=== PATIENT | female | born 1985 | race Caucasian/White ===

== ENCOUNTER 2019-08-11 13:24 | Emergency (ER) | payer MEDICAID ==
[~2019-08-11] VITALS: Ht 157.5 cm; Wt 68.0 kg
[2019-08-11 13:28] VITALS: BP 109/79
--- NOTE | 2019-08-11 13:33 | NUR ---
urine cup handed to pt for sample
--- NOTE | 2019-08-11 13:57 | NUR ---
strep and influenza swabs collected ---
--- NOTE | 2019-08-11 14:44 | NUR ---
33 Y/O C/C SORE THROAT X1 DAY. PT HAS NOT TAKEN MEDICATION FOR SORE THROAT. PT NOT TAKEN FLU SHOT/NO ONE SICK AT HOME. PT NKA. HX BIPOLAR. RX PT DOES NOT REMEMBER. NO N/V/D. PT SITTING IN CHAIR A.
[2019-08-11] MEDS ORDERED: IBUPROFEN 400 MG TAB PO ONE (15:10)
[2019-08-11 15:59] VITALS: BP 112/80
--- NOTE | 2019-08-11 15:59 | NUR ---
Patient discharged with v/s stable. Written and verbal after care instructions given and explained. Patient alert, oriented and verbalized understanding of instructions. Ambulatory with steady gait. All questions addressed prior to discharge. ID band removed. Patient advised to follow up with PMD. Rx of Tamiflu 75 mg, Motrin, Tylenol, Promethazine given. Patient educated on indication of medication including possible reaction and side effects. Opportunity to ask questions provided and answered.
== END 2019-08-11 15:54 | disposition home or self-care (01) ==
LOC: MED 13:24
DX: J10.1 Influenza due to other identified influenza virus with other respiratory manifestations (principal); F31.9 Bipolar disorder, unspecified
CPT/HCPCS: 87081; 87804; 99283

== ENCOUNTER 2020-08-05 17:38 | Emergency (ER) | payer MEDICAID ==
[~2020-08-05] VITALS: Ht 157.5 cm; Wt 68.0 kg
[2020-08-05 17:40] VITALS: BP 132/84
--- NOTE | 2020-08-05 17:48 | NUR ---
BIB FAMILY C/O L ANKLE PAIN S/P FALL X YESTERDAY.
--- NOTE | 2020-08-05 18:14 | NUR ---
Called [facility] for pending XR order.
--- NOTE | 2020-08-05 18:18 | NUR ---
PT TAKEN TO X RAY
--- NOTE | 2020-08-05 18:48 | NUR ---
Patient discharged with v/s stable. Written and verbal after care instructions given and explained. Patient alert, oriented and verbalized understanding of instructions. Ambulatory with W/C TO CAR. All questions addressed prior to discharge. ID band removed. Patient advised to follow up with PMD. Rx of NAPROSYN given. Patient educated on indication of medication including possible reaction and side effects. Opportunity to ask questions provided and answered.
[2020-08-05 18:49] VITALS: BP 132/84
== END 2020-08-05 18:48 | disposition home or self-care (01) ==
LOC: MED 17:38
DX: M25.572 Pain in left ankle and joints of left foot (principal); W18.39XA Other fall on same level, initial encounter; Y93.89 Activity, other specified; Y92.89 Other specified places as the place of occurrence of the external cause; Y99.8 Other external cause status
CPT/HCPCS: 73610; 99283